=== PATIENT | male | born 1955 | race Caucasian/White ===

== ENCOUNTER 2024-07-22 06:02 | Day surgery (SDC) | payer MEDICARE ==
--- NOTE | 2024-07-16 12:36 | ELECTROCARDIOGRAPH REPORT ---
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 ARABELLA Calderón Measurements Intervals [place] Rate: 58 P: 30 ME: 137 QRS: 70 QRSD: 101 T: 39 QT: 418 QTc: 411 Interpretive Statements Sinus bradycardia Electronically Signed On 07-16-2024 17:36:[address] ARABELLA Calderón Please click the below link to view image of tracing.
[2024-07-16 12:55] LABS: BASOPHILS # (AUTO) 0.1 X10'3 (0-0.2); BASOPHILS % (AUTO) 0.8 % (0-1); EOSINOPHILS % (AUTO) 0.2 % (0-6); LYMPHOCYTES # (AUTO) 1.2 X10'3 (1.1-4.8); LYMPHOCYTES % (AUTO) 17.3 % (21-51); MEAN CORPUSCULAR HGB CONC 34.5 g/dL (33.0-36.5); MEAN CORPUSCULAR VOLUME 92.7 FL (78-98); MEAN PLATELET VOLUME 8.7 FL (7.4-10.4); MONOCYTES # (AUTO) 0.5 X10'3 (0-0.9); MONOCYTES % (AUTO) 6.7 % (2-12); NEUTROPHILS # (AUTO) 5.1 X10'3 (1.8-7.7); PRE OP HEMATOCRIT 43.8 % (42.0-52.0); PRE OP HEMOGLOBIN 15.1 g/dL (14.0-17.9); PRE OP PLATELET COUNT 237 X10'3 (140-440); PRE OP WHITE BLOOD COUNT 6.8 10'3 (4.8-10.8); RED BLOOD COUNT 4.72 X10'6 (4.70-6.10); RED CELL DISTRIBUTION WIDTH 13.1 % (11.5-14.5)
[2024-07-16 13:21] LABS: ALBUMIN 3.9 G/DL (3.4-5.0); ALBUMIN/GLOBULIN RATIO 1.4 (1.1-1.5); ALKALINE PHOSPHATASE 69 IU/L (46-116); BLOOD UREA NITROGEN 23 MG/DL (7-18); BUN/CREATININE RATIO 21.5 (10.0-20.0); CALCIUM 8.5 MG/DL (8.5-10.1); CHLORIDE 109 MMOL/L (99-107); CREATININE 1.07 MG/DL (0.60-1.10); PRE OP ALT 50 U/L (30-65); PRE OP ANION GAP 9 (8-16); PRE OP AST 16 U/L (10-37); PRE OP BILIRUB, TOTAL 0.4 MG/DL (0.0-1.0); PRE OP GLUCOSE 84 MG/DL (70-104); PRE OP POTASSIUM 3.7 MMOL/L (3.4-5.1); PRE OP SODIUM 144 MMOL/L (135-145); TOTAL CARBON DIOXIDE 26.1 MMOL/L (24-32); TOTAL PROTEIN 6.7 G/DL (6.4-8.2); eGFR 69 ML/MIN
[~2024-07-22] VITALS: Ht 185.4 cm; Wt 95.5 kg
[2024-07-22] VITALS (7 sets, daily range): BP systolic 101–127; BP diastolic 56–89; PULSE 45–56; RESP 9–16; TEMP 97.6; O2SAT 56–100
[2024-07-22] MEDS: ceFAZolin 2gm/dext,iso 50mL 50 ML IV ONE (05:30)
[~2024-07-22 06:02] MED LIST: IRBE300T26 PO; LANS30CA56 PO
[2024-07-22] MEDS: famotidine 20mg tablet PO ONE (06:46)
[2024-07-22] MEDS: ringers solution, lacted 1,000 ML IV SCH (06:48)
[2024-07-22] MEDS ORDERED: BUPIVAcaine/PF 2.5mg/ml (0.25%) 10ml vial ONE (07:04)
[2024-07-22] MEDS ORDERED: LIDOcaine 1% (10mg/ml) 2ml vial ONE (07:04)
[2024-07-22] MEDS ORDERED: labetalol 20mg/4ml (5mg/ml) syringe IV PRN (08:15)
[2024-07-22] MEDS ORDERED: ketorolac trometh 15mg/ml vial 15 MG/ML ML IV ONE (08:15)
[2024-07-22] MEDS ORDERED: morphine 4 MG/ML inj SYRINge IV PRN (08:15)
[2024-07-22] MEDS ORDERED: morphine 2 MG/ML inj. syringe IV PRN (08:15)
[2024-07-22] MEDS ORDERED: ondansetron/PF 4mg/2ml inj IV PRN (08:15)
[2024-07-22] MEDS ORDERED: HYDROmorphone/PF 0.2 MG/ML SYRINGE IV PRN ×2 (08:15)
[2024-07-22] MEDS ORDERED: proCHLORperazine 10 MG/2 ml inj IV PRN (08:15)
[2024-07-22] MEDS ORDERED: ringers solution, lacted 1,000 ML IV SCH (08:15)
[2024-07-22] MEDS ORDERED: acetaminophen 1,000mg/100ml IV 100 ML IV PRN (08:15)
[2024-07-22] MEDS ORDERED: hydrALAZINE 20mg/ml inj. IV PRN (08:15)
[2024-07-22] MEDS ORDERED: meperidine/PF 25mg/ml syringe IV PRN (08:15)
[2024-07-22] MEDS ORDERED: midazolam 1 mg/ML 2ml injection ONE (08:30)
[2024-07-22] MEDS ORDERED: fentaNYL/PF 50MCG/1 ML 2ML syringe ONE (08:30)
[2024-07-22] MEDS ORDERED: LIDOcaine 0.5% (5mg/ml) 50ml vial ONE (08:43)
[2024-07-22] MEDS ORDERED: propofol inj 20 ML IV ONE ×2 (08:43)
--- NOTE | 2024-07-22 10:34 | OPERATIVE REPORT ---
Operative Report Providers to ~ Date of Procedure: Jul 22, 2024 Pre-Operative Diagnosis: Left wrist triangular fibrocartilage complex tear Post-Operative Diagnosis Left wrist central TFCC tear, membranous scapholunate ligament tear Procedure Performed Left wrist arthroscopy with debridement of torn triangular fibrocartilage and debridement of wrist joint. Surgeon: Abdi Lewis MD Job Counselor None Anesthesiologist: Mesfin Aponte Type of Anesthesia: Regional Findings: Estimated Blood Loss: None Specimen Removed: None Description of Procedure: The patient is a 69-year-old man with chronic ulnar-sided wrist pain refractory to nonsurgical treatment. Surgery is indicated to relieve symptoms. Risks and benefits were discussed with the patient. Some of the risks include but not limited to infection, bleeding, nerve or vessel damage, tendon injury, and incomplete relief of pain. He agreed to proceed. He was brought to the operating room where the arm was prepped and draped in usual manner after the block was given. Proper time-out procedure was observed. The wrist was placed in sterile traction tower and landmarks were identified. The wrist was injected with Marcaine and three four portal was developed with the incision just through skin and blunt penetration of the capsule. After placing the camera that was used to help develop a 6R portal and a similar manner. There was a large irrepairable tear of the TFCC and significant dorsal synovitis. There was also membranous scapholunate ligament tear with intact dorsal and volar ligaments. Shaver was used to debride the TFCC back to normal smooth tissue and the dorsal ulnar capsule was debrided as well. The scope and shaver were then switched and the mid dorsal capsule was debrided along with the membranous scapholunate ligament. The scope was redirected in the mid carpal joint no lesions or instability were noted. The scope was removed and closed with Steri-Strips. Marcaine was injected in a soft dressing was applied. The tourniquet was released the hand perfused well and the patient was taken to the recovery room in stable condition. ABDI LEWIS Jr., MD Jul 22, 2024 10:34
== END 2024-07-22 10:04 | disposition home or self-care (01) ==
LOC: PAS 06:02
PROVIDERS: ATTEND Orthopaedic Surgery Hand Surgery
DX: S63.592A Other specified sprain of left wrist, initial encounter (principal); I10 Essential (primary) hypertension; K21.9 Gastro-esophageal reflux disease without esophagitis; G43.909 Migraine, unspecified, not intractable, without status migrainosus; X58.XXXA Exposure to other specified factors, initial encounter; Y93.89 Activity, other specified; Y92.89 Other specified places as the place of occurrence of the external cause; Y99.8 Other external cause status; Z79.899 Other long term (current) drug therapy; Z98.890 Other specified postprocedural states; K22.70 Barrett's esophagus without dysplasia; Z85.828 Personal history of other malignant neoplasm of skin; Z82.49 Family history of ischemic heart disease and other diseases of the circulatory system; R00.1 Bradycardia, unspecified
CPT/HCPCS: 29846; 36415; 80053; 82948; 85025; 93005; J2003; J2250; J2704; J3010; J3490; J7030; J7120; Z7506; Z7512; A4215; A4618; A6449; A7000